=== PATIENT | male | born 1965 | race Caucasian/White ===

== ENCOUNTER 2019-02-24 16:19 | Observation (INO) | payer BC ==
[~2019-02-24] VITALS: Ht 177.8 cm; Wt 103.1 kg
[2019-02-24] MEDS ORDERED: QBRELIS1 MG/1 ML (16:35)
[2019-02-24] MEDS ORDERED: PROTONIX20 MG (16:36)
[2019-02-24] MEDS ORDERED: CLARITIN 1010 MG/TAB PO (16:37)
[2019-02-24] MEDS ORDERED: ALLEGRA-D TABLE1 TAB PO (16:37)
[2019-02-24] MEDS ORDERED: ZYRTEC 10MG10 MG PO (16:38)
[2019-02-24 16:46] LABS: BASO # 0.1 (0.0-0.2); BASO % 0.4 % (0.0-2.0); EOS # 0.1 (0.0-0.7); GRAN # 6.6 (1.4-6.5); GRAN % 50.9 % (42.2-75.2); HEMATOCRIT 45.2 % (42.0-52.0); HEMOGLOBIN 14.8 g/dl (13.5-18.0); LYMPH % 38.6 % (20.0-51.0); MEAN CELL VOLUME 89 fl (80.0-100.0); MEAN CORPUSCULAR HEMOGLOBIN 29 pg (27.0-31.0); MEAN CORPUSCULAR HGB CONC 33 g/dl (33.0-37.0); MEAN PLATELET VOLUME 9.7 fl (7.4-10.4); MONO # 1.1 (0.1-0.6); MONO % 8.7 % (1.7-9.3); PLATELET COUNT 366 K/mm3 (130-400); REDCELL DISTRIBUTION WIDTH-CV 13.8 % (11.5-14.5)
[2019-02-24 16:53] LABS: ALANINE AMINOTRANSFERASE 27 U/L (21-72); ALBUMIN 4.4 gm/dL (3.5-5.0); ALKALINE PHOSPHATASE 77 U/L (50-136); ANION GAP 12 mmol/L (7-16); AST,SGOT 36 U/L (15-37); BILIRUBIN,TOTAL 0.8 mg/dL (0.0-1.0); BLOOD UREA NITROGEN 23 mg/dL (9-20); CALCIUM 9.7 mg/dL (8.4-10.2); CARBON DIOXIDE 22 mmol/L (22-30); CHLORIDE 104 mmol/L (98-107); CREATININE, serum 1.05 (0.66-1.25); GLUCOSE 140 mg/dL (74-106); SODIUM 138 mmol/L (137-145); TOTAL PROTEIN 7.9 gm/dL (6.4-8.2)
[2019-02-24 17:10] LABS: TROPONIN-I < 0.012 ng/mL (0.000-0.035)
[2019-02-24] MEDS ORDERED: PROTONIX 40MG T40 MG PO (17:18)
[2019-02-24] MEDS ORDERED: PRINIVIL10 MG PO (17:19)
[2019-02-24] MEDS ORDERED: ZANAFLEX 4MG TAB4 MG PO (17:20)
[2019-02-24] MEDS ORDERED: VALIUM 5MG T5 MG/TAB PO (17:21)
[2019-02-24] MEDS ORDERED: IBU800 M1 PO (17:21)
[2019-02-24 20:24] VITALS: BP 130/79; PULSE 83; TEMP 97.4
[2019-02-24] MEDS ORDERED: FLONASEALLERGY NS (20:57)
[2019-02-24] MEDS ORDERED: SINGULAIR 110 MG/TAB PO (20:59)
[2019-02-24] MEDS ORDERED: ASPIRIN 32325 MG/TAB PO (21:01)
[2019-02-24 23:27] VITALS: BP 121/78; PULSE 74; TEMP 97.3
--- NOTE | 2019-02-25 04:43 | NUR ---
pt had an uneventful night. no pain. slept throughout night. pt refused VTE. pt on room air. VSS. no needs at this time. call light inreach
[2019-02-25 04:50] LABS: HEMATOCRIT 42.2 % (42.0-52.0); HEMOGLOBIN 13.5 g/dl (13.5-18.0); MEAN CELL VOLUME 90 fl (80.0-100.0); MEAN CORPUSCULAR HEMOGLOBIN 29 pg (27.0-31.0); MEAN CORPUSCULAR HGB CONC 32 g/dl (33.0-37.0); MEAN PLATELET VOLUME 9.5 fl (7.4-10.4); PLATELET COUNT 300 K/mm3 (130-400); RED BLOOD COUNT 4.71 M/mm3 (4.20-5.60); REDCELL DISTRIBUTION WIDTH-CV 13.7 % (11.5-14.5)
[2019-02-25 04:59] VITALS: BP 113/77; PULSE 65; TEMP 98.1
[2019-02-25 05:01] LABS: ANION GAP 10 mmol/L (7-16); BLOOD UREA NITROGEN 18 mg/dL (9-20); CALCIUM 8.4 mg/dL (8.4-10.2); CARBON DIOXIDE 25 mmol/L (22-30); CHLORIDE 104 mmol/L (98-107); CREATININE, serum 0.89 (0.66-1.25); GLUCOSE 84 mg/dL (74-106); POTASSIUM 4.4 mmol/L (3.4-5.0); SODIUM 138 mmol/L (137-145)
[2019-02-25 05:16] LABS: TROPONIN-I 6 HR POST INITIAL < 0.012 ng/mL (0.000-0.034)
[2019-02-25 07:21] VITALS: BP 123/80; PULSE 73; TEMP 98.6
--- NOTE | 2019-02-25 08:14 | NUR ---
Assessment completed, alert/oriented, vital signs stable, denies pain or discomfort, reports feeling back to baseline, no neuro deficits noted, denies any further N/V and has eaten breakfast and tolerated well, heart RRR/distal pulses are palpable, lungs CTA/ no reps.difficulty noted, he is getting ready to go down for an MRI brain, neuro consuled/ however patient is from [place] and is thinking maybe sence he is feeling better he may just go home today and get established with a neurologist there, instructed him that would be in this morning and we can discuss plan of care at that time
--- NOTE | 2019-02-25 10:40 | NUR ---
AISLINN met with the patient and his , Hawa to discuss a discharge plan. The patient lives in [place]. The patient does not use any DME and reports independence with ADLs. The patient's PCP is in [place] and the patient receives his medication from [facility] at [address] [place] [address] in [place]. The patient does not have advanced directives in the EMR, but was interested in obtaining a DPOA-HC form. AISLINN provided the DPOA-HC form to the patient. The patient plans to return home with Hawa upon discharge. There are no additional needs at this time.
[2019-02-25] MEDS ORDERED: ANTIVERT 25MG25 MG PO (10:52)
[2019-02-25] MEDS ORDERED: VALIUM 5MG T5 MG/TAB PO (10:58)
--- NOTE | 2019-02-25 11:18 | NUR ---
discharge instructions reviewed with the patient and his , instructed to follow up with PCP in [place] and we would recommend an ENT referral, explained we will mail him a CD of CT/MRI images, IV and tele removed, denies other needs, I personally escorted them out of the door
== END 2019-02-25 11:20 | disposition home or self-care (01) ==
LOC: COL.ER 16:19 → MEDICAL 18:42
PROVIDERS: Emergency Medicine; ADMIT Internal Medicine
DX: H55.09 Other forms of nystagmus (principal); R42 Dizziness and giddiness; D72.829 Elevated white blood cell count, unspecified; R11.2 Nausea with vomiting, unspecified; I10 Essential (primary) hypertension; Z87.11 Personal history of peptic ulcer disease; I51.7 Cardiomegaly; Z79.899 Other long term (current) drug therapy
CPT/HCPCS: A9585; C9113; G0378; J2405; J7030